=== PATIENT | female | born 1940 | race African-American/Black ===

== ENCOUNTER 2025-04-11 12:37 | Emergency (ER) | payer OTHER ==
[2025-04-11 13:16] VITALS: BP 122/71; PULSE 82; RESP 16; TEMP 99.7; BMI 23.4
== END 2025-04-11 17:40 | disposition home or self-care (01) ==
LOC: JER 12:37
DX: N81.4 Uterovaginal prolapse, unspecified (principal)
CPT/HCPCS: 99283-25